=== PATIENT | male | born 1975 | race Caucasian/White ===

== ENCOUNTER 2024-08-03 16:46 | Emergency (ER) | payer MEDICAID, SELFPAY ==
[2024-08-03 17:09] VITALS: BP 194/114; PULSE 77; RESP 18; TEMP 37.4; O2SAT 95; BMI 48.6
--- NOTE | 2024-08-03 18:01 | ED.GENADULT ---
HPI - General Adult General Chief complaint: Extremity Pain/Injury, Lower Stated complaint: Leg Pain - R Time Seen by Provider: 08/03/24 16:49 Source: patient Mode of arrival: ambulatory Limitations: no limitations History of Present Illness HPI narrative: 48-year-old male presenting today with leg pain. Pain started 5 days ago when patient was working, patient works as a field crop farmer. He remembers pushing feed towards like how with his legs sweeping feed from a lateral to medial motion with his leg. He felt discomfort in his groin area immediately. He then felt pain around the upper thigh which then over the next couple days radiated down the the thigh all the way to the knee. The pain progressively got worse. He was seen yesterday at [facility]. He states that he had x-rays done, unclear what part of the leg was x-rayed. He was told that the x-rays were normal and he was given oxycodone and prednisone. He took 1 dose of oxycodone it did not help. He then went to see his primary care provider today he was given meloxicam but told not to start taking it until he finished the prednisone. He was told to stop taking the oxycodone. He states that the pain is significant and he is unsure of what to do. Today his thigh muscles started spasming. He denies other injury or pain in other extremities. He denies any systemic symptoms. He states that he is able to walk when he does it causes pain at the top of the thigh. Related Data Home Medications ?Medication ?Instructions ?Recorded ?Confirmed lisinopril 10 1 tab PO DAILY 08/03/24 08/03/24 mg-hydrochlorothiazide 12.5 mg tablet meloxicam 15 mg tablet 15 mg PO DAILY 08/03/24 08/03/24 prednisone .ROUTE DAILY 08/03/24 Allergies Allergy/AdvReac Type Severity Reaction Status Date / Time No Known Drug Allergies Allergy Verified 08/03/24 17:05 Review of Systems Status of ROS: Reports: 6 or more systems reviewed and unremarkable except as noted in History and below [facility] Social History Smoking Status: Never smoker How often do you have a drink containing alcohol: never AUDIT-C Alcohol total score: 0 Non-prescribed substance use: denies use Exam Narrative: Exam Narrative: Morbidly obese patient in no acute distress. Alert and oriented. Answers questions appropriately. Mood and affect are appropriate. Thoughts are goal oriented and rational. No tangential or magical thinking noted. Patient speaks in full sentences without needing to catch his breath. HEENT: Normocephalic atraumatic. Extraocular muscles are intact. Conjunctivae are moist without any icterus noted. Moist mucous membranes. Musculoskeletal exam is technically difficult given patient's body habitus. He does not appear to have any pain of the knee. He has full extension and flexion without discomfort. He has no difficulty with extension and flexion of the knee against resistance. He has pain with flexion at the hip, especially against resistance. He has pain with internal and external rotation the hip. He has a small area of varicosities of the anteromedial thigh that he states he just noticed yesterday. The area is not significantly tender. The thigh does not appear to be swollen or have an increased diameter when compared to the other side. There are no skin changes far as erythema, the area is not hot. There is no broken skin. He has no tenderness over the lateral thigh. Const: Vital Signs, click to edit/add: Vital Signs - 24 hr 08/03/24 17:09 Temperature 99.4 F Pulse Rate [Pulse Oximeter] 77 Respiratory Rate 18 Blood Pressure [Ri ght Upper Arm] 194/114 H Pulse Oximetry 95 Oxygen Delivery Me thod Room Air Course Vital Signs Vital signs: Initial Vital Signs Temperature 99.4 F 08/03/24 17:09 Temperature Source Temporal Artery Scan 08/03/24 17:09 Pulse Rate 77 08/03/24 17:09 Pulse Rhythm Regular 08/03/24 17:09 Respiratory Rate 18 08/03/24 17:09 Blood Pressure 194/114 H 08/03/24 17:09 Blood Pressure Mean 140 H 08/03/24 17:09 Blood Pressure Position Sitting 08/03/24 17:09 Pulse Oximetry 95 08/03/24 17:09 Oxygen Delivery Method Room Air 08/03/24 17:09 Vital Signs Temperature 99.4 F 08/03/24 17:09 Pulse Rate 77 08/03/24 17:09 Respiratory Rate 18 08/03/24 17:09 Blood Pressure 194/114 H 08/03/24 17:09 Pulse Oximetry 95 08/03/24 17:09 Oxygen Delivery Method Room Air 08/03/24 17:09 Temperature 99.4 F 08/03/24 17:09 Pulse Rate 77 08/03/24 17:09 Respiratory Rate 18 08/03/24 17:09 Blood Pressure 194/114 H 08/03/24 17:09 Pulse Oximetry 95 08/03/24 17:09 Oxygen Delivery Method Room Air 08/03/24 17:09 Medical Decision Making MDM Narrative Medical decision making narrative: 48-year-old male with leg pain. Pain appears to be coming from the hip joint. We discussed that he should stop the prednisone and start meloxicam. He should stop the Oxycodone and start [place]. He has physical therapy already scheduled for Tuesday. No imaging was done today as patient will follow up with his primary and PT this week. Of note, blood pressure elevated today. He was just started on new blood pressure medications today by his primary care provider and has follow-up already scheduled. Discharge Plan Discharge Clinical Impression: Acute hip pain Patient Disposition: Home, Self-Care Condition: Stable Additional Instructions: Stop taking the prednisone and start the meloxicam. The meloxicam is an anti-inflammatory medication that will be more helpful for pain. Also recommend that you stop taking the oxycodone and start [place] instead. [place] contains acetaminophen which will also help with pain. Lastly, Flexeril, muscle relaxer has been sent in for you-you can also take this. Be careful when taking [place] and Flexeril-both can cause drowsiness. Do not operate heavy machinery when taking either of them. Narcotic pain medications can also cause constipation and addiction. [place] and Flexeril sent to [facility]. Follow-up with physical therapy on Tuesday as scheduled. Recommend you follow-up with your primary care provider next week also. Prescriptions: No Action meloxicam 15 mg tablet 15 mg PO DAILY lisinopril-hydrochlorothiazide 10-12.5 mg tablet 1 tab PO DAILY prednisone .ROUTE DAILY Rx Instructions: unknown dose; 2 tabs once daily Stand Alone Forms: [employer] Info Instructions
--- OUTSIDE RECORDS SUMMARY | 2024-08-03 18:14 | XMS_ITS | Clinical Summary ---
Author Organization [facility] Address [address] [place] [id number] Care Team Providers Care Systems Testing Laboratory Technician Name Role Phone Clinic, [facility] Pro vider Allergies No known active allergies Medications oxyCODONE (ROXICODONE) 5 mg immediate release tabletIndicatio ns:Right leg pain Take 1-2 Tablets (5-10 mg) by mouth every 6 hours if needed for Pain. 10 Tablet 08/02/2024 Active predniSONE (DELTASONE) 20 mg tabletIndicatio ns:Right leg pain Take 2 Tablets (40 mg) by mouth once daily with a meal for 5 days. 10 Tablet 08/02/2024 Active Encounters Date Type Department Care Team Description 08/02/2024 9:09 AM CARBONATOR - 08/02/2024 11:02 AM [facility] Emergency [facility] [address] [place] [address] Pascual Pearl MD Right leg pain (Primary Dx) Discharge Disposition: Home Self Care 08/02/2024 Travel from Last 3 Months Social History Tobacco Use Types Packs/Day Years Used Date Smoking Tobacco: Never Assessed Interpersonal Safety Answer Date Record ed Are you being hit, kicked, p ushed or yelled at (see row info)? No 08/02/2024 Interpersonal Safety Abuse 12 - 18 Not on file 08/02/2024 Interpersonal Safety Ambulatory Vulnerability No t on file 08/02/2024 Sex and Gender Information Value Date Recorded Sex Assigned at Not on file Legal Sex Male 9:05 AM CARBONATOR Gender Identity Not on file Sexual Orientation Not on file Last Filed Vital Signs Vital Sign Reading Time Taken Comments Blood Pressure 230/133 08/02/2024 9:14 AM CARBONATOR Pulse 77 08/02/2024 9:15 AM CARBONATOR Temperature 36.7 C (98 F) 08/02/2024 9:18 AM CARBONATOR Respiratory Rate 20 08/02/2024 9:18 AM CARBONATOR Oxygen Saturation 97% 08/02/2024 9:15 AM CARBONATOR Inhaled Oxygen Concentration - - Weight 160.6 kg (354 lb) 08/02/2024 9:15 AM CARBONATOR Height 182.9 cm (6') 08/02/2024 9:15 AM CARBONATOR Body Mass Index 48.01 08/02/2024 9:15 AM CARBONATOR Plan of Treatment Upcoming Encounters Date Type Department Care Team (Late st Contact Info) Description 08/06/2024 10:15 AM CARBONATOR Appointment [facility] [address] [place] [address] Lynn Thorne, PT [address] [place] [address] Procedures Procedure Name Priority Date/Time Associated Diagnosis Comments XR FEMUR 2 VIEWS RIGHT STAT 08/02/2024 10:06 AM CARBONATOR XR KNEE 2 VIEWS RIGHT STAT 08/02/2024 9:56 AM CARBONATOR from Last 3 Months Results * XR FEMUR 2 VIEWS RIGHT (08/02/2024 10:06 AM CARBONATOR) Anatomical Region Laterality Modality FEMURS, FEMUR R Digital Radiogra phy 08/02/2024 10:1 5 AM CARBONATOR Narrative 08/02/2024 10:15 AM CARBONATOR For Patients: As a result of the Century Cures Act, medical imaging exams and procedure reports are released immediately into your electronic medical record. You may view this report before your referring provider. If you have questions, please contact your health care provider. Indication: Pain Technique: Two views right femur Comparison: Right knee 08/02/2024 Findings/Impression: Bones: No evidence of acute fracture. Joint spaces: Right knee osteoarthritis with patellofemoral osteophytes and mild medial compartment narrowing. No dislocation. Soft tissues: Enthesopathic calcification adjacent to the greater trochanter as well as some heterotopic ossification projecting inferior to the right ischium. Atherosclerosis. Calcification along the superficial aspect of the patellar ligament. Dictated by Petar Flores MD @ 08/02/2024 10:15:51 AM (Electronically Signed) Procedure Note Petar Flores MD - 08/02/2024 For Patients: As a result of the Cures Act, medical imagingexams and procedure reports are released immediately into your electronicmedical record. You may view this report before your referring provider.If you have questions, please contact your health care provider. Indication: Pain Technique: Two views right femur Comparison: Right knee 08/02/2024 Findings/Impression: Bones: No evidence of acute fracture. Joint spaces: Right knee osteoarthritis with patellofemoral osteophytesand mild medial compartment narrowing. No dislocation. Soft tissues: Enthesopathic calcification adjacent to the greatertrochanter as well as some heterotopic ossification projecting inferior tothe right ischium. Atherosclerosis. Calcification along the superficialaspect of the patellar ligament. Dictated by Peatr Flores MD @ 08/02/2024 10:15:51 AM (Electronically Signed) Pascual Pearl MD GENERAL IMAGING Fin al Result * XR KNEE 2 VIEWS RIGHT (08/02/2024 9:56 AM CARBONATOR) Anatomical Region Laterality Modality KNEE R Digital Radiogra phy 08/02/2024 10:1 0 AM CARBONATOR Impressions 08/02/2024 10:10 AM CARBONATOR Mild tricompartmental osteoarthrosis. Dictated by Adria Saba MD @ 08/02/2024 10:10:51 AM (Electronically Signed) Narrative 08/02/2024 10:10 AM CARBONATOR For Patients: As a result of the Cures Act, medical imaging exams and procedure reports are released immediately into your electronic medical record. You may view this report before your referring provider. If you have questions, please contact your health care provider. INDICATION: Pain. COMPARISON: None available. TECHNIQUE: Views: 3 FINDINGS: Mineralization: Normal. Alignment: Normal. Bones and Joints: No fracture is identified. Mild tricompartmental osteoarthrosis. Soft Tissues: No periarticular soft tissue swelling or significant joint effusion. Dystrophic calcifications in the superficial soft tissues overlying the patellar tendon above the tibial tubercle as seen on the lateral view, not considered clinically significant. Small posterior periarticular calcification on the lateral view consistent with a fabella. Differential diagnostic considerations include a small loose intra-articular body. Procedure Note Adria Saba MD - 08/02/2024 For Patients: As a result of the Cures Act, medical imagingexams and procedure reports are released immediately into your electronicmedical record. You may view this report before your referring provider.If you have questions, please contact your health care provider. INDICATION: Pain. COMPARISON: None available. TECHNIQUE: Views: 3 FINDINGS: Mineralization: Normal. Alignment: Normal. Bones and Joints: No fracture is identified. Mild tricompartmentalosteoarthrosis. Soft Tissues: No periarticular soft tissue swelling or significant jointeffusion. Dystrophic calcifications in the superficial soft tissuesoverlying the patellar tendon above the tibial tubercle as seen on thelateral view, not considered clinically significant. Small posteriorperiarticular calcification on the lateral view consistent with a fabella.Differential diagnostic considerations include a small looseintra-articular body. IMPRESSION: Mild tricompartmental osteoarthrosis. Dictated by Adria Saba MD @ 08/02/2024 10:10:51 AM (Electronically Signed) Pascual Pearl MD GENERAL IMAGING Fin al Result from Last 3 Months Insurance [facility] Care Teams Systems Testing Laboratory Technician Relationship Specialty Start Date End Date [facility], [address] [address] PCP - General 08/01/24
== END 2024-08-03 18:30 | disposition home or self-care (01) ==
PROVIDERS: Emergency Provider Family Medicine
DX: M25.551 Pain in right hip (principal)
CPT/HCPCS: 99283; 99284